=== PATIENT | female | born 1930 | race African-American/Black ===

== ENCOUNTER 2018-03-18 14:38 | Emergency (ER) | payer OTHER ==
[~2018-03-18] VITALS: Ht 160 cm; Wt 81.6 kg
[~2018-03-18 14:38] MED LIST: ASA81 MG PO; AVALIDE 150-12.1 TA1 PO; CATAFLAM50 MG PO; ORPH100T PO
== END 2018-03-18 18:18 | disposition home or self-care (01) ==
LOC: ER 14:38
DX: B34.9 Viral infection, unspecified (principal); N39.0 Urinary tract infection, site not specified